=== PATIENT | female | born 1955 | race Caucasian/White ===

== ENCOUNTER 2017-10-27 16:18 | Emergency (ER) | payer BC ==
[~2017-10-27] VITALS: Ht 162.6 cm; Wt 88.5 kg
[~2017-10-27 16:18] MED LIST: ACETAZOLAMIDE250 M1 OR; AMARYL4 MG PO; ASPIR 8181 M1 PO; ATORVASTATIN CA40 MG PO; EFFEXOR XR75 MG PO; HYDROCODONE-AP1 EAC6 PO; HYDROCODONE-APA1 TA1 PO; IBUPROFEN 800800 M1 PO; LASIX 20 MG TAB20 MG PO; NEURONTIN600 MG PO; NORCO 5-325 TA1 EAC1 PO; OMEGA-31000 M1 PO; PERCOCET PO; POTASSIUM20 PO; REQUIP 1 MG TABL1 M1; TUMS PO; ULTRAM 50MG TAB50 MG PO; VICTOZA0.6 MG/0.1 SUBQ; VITAMIN D2000 UNIT PO
[2017-10-27 17:16] LABS: ABSOLUTE EOSINOPHILS 0.1 thou/uL (0.0-0.7); ABSOLUTE LYMPHOCYTES 1.2 thou/uL (0.8-5.3); ABSOLUTE MONOCYTES 0.6 thou/uL (0.0-1.2); ABSOLUTE NEUTROPHILS 7.3 thou/uL (1.6-8.1); BASOPHILS 0.4 %; EOSINOPHILS 0.9 %; HEMATOCRIT 39.3 % (37.0-47.0); HEMOGLOBIN 12.8 gm/dL (12.0-15.0); LYMPHOCYTES 12.9 %; MCH 29.8 pg (26.0-34.0); MCHC 32.5 g/dL (28.0-37.0); MCV 91.7 fL (80.0-100.0); MONOCYTES 6.8 %; MPV 9.5 fl. (7.2-11.1); NUCLEATED RBCS 0 /100WBC; PLATELET COUNT* 155 thou/uL (150-400); RBC 4.29 mil/uL (4.20-5.00); RDW-CV 14.7 % (10.5-14.5); WBC 9.2 thou/uL (4.0-11.0)
[2017-10-27 17:25] LABS: PROTIME 9.6 Seconds (9.20-11.50)
[2017-10-27 17:26] LABS: CALCIUM 8.4 mg/dL (8.5-10.1); CREATININE 1.7 mg/dL (0.6-1.3)
[2017-10-27 17:30] LABS: ALBUMIN 3.1 g/dL (3.4-5.0); TOTAL BILIRUBIN 0.3 mg/dL (<0.1-1.0); TOTAL PROTEIN 6.4 g/dL (6.4-8.2)
[2017-10-27 17:33] LABS: POTASSIUM 2.9 mmol/L (3.5-5.1)
[2017-10-27 17:44] LABS: TROPONIN-I LEVEL <0.06 ng/mL (<0.06)
[2017-10-27 18:22] LABS: URINE BILIRUBIN NEGATIVE (Negative); URINE BLOOD TRACE (Negative); URINE CLARITY CLEAR; URINE COLOR YELLOW; URINE GLUCOSE-RANDOM 2+ (Negative); URINE KETONES NEGATIVE (Negative); URINE LEUKOCYTES-REFLEX 1+ (Negative); URINE NITRITE-REFLEX NEGATIVE (Negative); URINE PROTEIN NEGATIVE (Negative); URINE UROBILINOGEN 0.2 E.U./dl (0.2-1.0)
[2017-10-27 18:29] LABS: CASTS None Seen /LPF (None Seen); CRYSTALS None Seen /LPF (None Seen); SQUAMOUS >10 Many /LPF (0-3); URINE WBC-REFLEX 6-15 Few /HPF (0-5)
[2017-10-27 18:30] LABS: BACTERIA-REFLEX >30 Many /HPF (None Seen); URINE RBC None Seen /HPF (0-2)
[2017-10-27] MEDS ORDERED: ZOFRAN ODT4 MG PO (18:33)
[2017-10-27] MEDS ORDERED: KEFLEX500 M1 PO (18:33)
[2017-10-27 18:51] VITALS: BP 146/77
--- NOTE | 2017-10-28 12:03 | EKG ---
[place] [address] ELECTROCARDIOGRAM REPORT Name: VALE DRUMMOND Room: [facility]#: [id number] Admission: 10/27/17 Attend Phys: Discharge: 10/27/17 Date of : 53 Report #: [id number] THIS REPORT FOR: //name// [facility] ED Test Date: 2017-10-27 Test Time: 17:54:32 Pat Name: VALE DRUMMOND Department: Room: Gender: F [employer] Attorney: Suzi CHATMAN : 1955 Requested By: Nish Costa Order Number: [id number] MD: Chon Gallardo Measurements Intervals Theodore Rate: 66 P: 23 WI: 204 QRS: -12 QRSD: 110 T: 204 QT: 571 QTc: 599 Interpretive Statements Sinus rhythm Consider anterior infarct Nonspecific T abnormalities, lateral leads Prolonged QT interval Compared to ECG 12/07/2016 12:24:30 Prolonged QT interval now present T-wave abnormality still present Electronically Signed On 10-28-2017 12:03:16 CDT by Chon Gallardo [email or web address] <ELECTRONICALLY SIGNED> By: Chon Gallardo MD, [facility] 10/28/17 1203 1754 1754 Chon Gallardo MD, [facility] /EPI
== END 2017-10-27 18:51 | disposition home or self-care (01) ==
LOC: M.ERS 16:18
PROVIDERS: Emergency Medicine Emergency Medical Services; Nurse Practitioner Family
DX: N39.0 Urinary tract infection, site not specified (principal); R25.1 Tremor, unspecified; E11.22 Type 2 diabetes mellitus with diabetic chronic kidney disease; N18.3 Chronic kidney disease, stage 3 (moderate); Z90.89 Acquired absence of other organs; Z86.14 Personal history of Methicillin resistant Staphylococcus aureus infection; Z88.2 Allergy status to sulfonamides; Z88.8 Allergy status to other drugs, medicaments and biological substances

== ENCOUNTER 2018-02-04 23:23 | Emergency (ER) | payer BC ==
[~2018-02-04] VITALS: Ht 162.6 cm; Wt 89.8 kg
[~2018-02-04 23:23] MED LIST changes: +KEFLEX500 M1 PO; +ZOFRAN ODT4 MG PO
[2018-02-04] MEDS ORDERED: AMARYL4 MG PO (23:36)
[2018-02-04] MEDS ORDERED: NORFLEX100 MG PO (23:36)
[2018-02-04 23:57] LABS: URINE BILIRUBIN NEGATIVE (Negative); URINE BLOOD NEGATIVE (Negative); URINE CLARITY CLEAR; URINE COLOR STRAW; URINE GLUCOSE-RANDOM NEGATIVE (Negative); URINE KETONES NEGATIVE (Negative); URINE LEUKOCYTES-REFLEX NEGATIVE (Negative); URINE NITRITE-REFLEX NEGATIVE (Negative); URINE PROTEIN NEGATIVE (Negative); URINE UROBILINOGEN 0.2 E.U./dl (0.2-1.0)
[2018-02-05 00:01] LABS: ABSOLUTE BASOPHILS 0.1 thou/uL (0.0-0.2); ABSOLUTE EOSINOPHILS 0.2 thou/uL (0.0-0.7); ABSOLUTE LYMPHOCYTES 3.4 thou/uL (0.8-5.3); ABSOLUTE MONOCYTES 0.8 thou/uL (0.0-1.2); ABSOLUTE NEUTROPHILS 8.1 thou/uL (1.6-8.1); BASOPHILS 0.8 %; EOSINOPHILS 1.3 %; HEMATOCRIT 37.1 % (37.0-47.0); HEMOGLOBIN 12.4 gm/dL (12.0-15.0); LYMPHOCYTES 26.9 %; MCH 30.6 pg (26.0-34.0); MCHC 33.3 g/dL (28.0-37.0); MCV 91.8 fL (80.0-100.0); MONOCYTES 6.6 %; MPV 8.8 fl. (7.2-11.1); NUCLEATED RBCS 0 /100WBC; PLATELET COUNT* 213 thou/uL (150-400); POLYS 64.4 %; RBC 4.04 mil/uL (4.20-5.00); RDW-CV 14.5 % (10.5-14.5); WBC 12.6 thou/uL (4.0-11.0)
[2018-02-05 00:17] LABS: POTASSIUM 4.1 mmol/L (3.5-5.1)
[2018-02-05 00:24] LABS: ALBUMIN 3.4 g/dL (3.4-5.0); MAGNESIUM 2.3 mg/dL (1.8-2.4); TOTAL BILIRUBIN 0.2 mg/dL (<0.1-1.0); TOTAL PROTEIN 6.7 g/dL (6.4-8.2)
[2018-02-05] MEDS ORDERED: NEURONTIN 300300 M1 PO (00:39)
[2018-02-05 01:35] VITALS: BP 119/72
== END 2018-02-05 01:36 | disposition home or self-care (01) ==
LOC: M.ERS 23:23
PROVIDERS: Nurse Practitioner Family
DX: M79.604 Pain in right leg (principal); M79.605 Pain in left leg; G25.81 Restless legs syndrome; E11.22 Type 2 diabetes mellitus with diabetic chronic kidney disease; N18.3 Chronic kidney disease, stage 3 (moderate); Z86.14 Personal history of Methicillin resistant Staphylococcus aureus infection; Z88.2 Allergy status to sulfonamides; Z88.8 Allergy status to other drugs, medicaments and biological substances

== ENCOUNTER 2018-08-23 07:04 | Emergency (ER) | payer BC ==
[~2018-08-23] VITALS: Ht 165.1 cm; Wt 104.3 kg
[~2018-08-23 07:04] MED LIST changes: +NEURONTIN 300300 M1 PO; +NORFLEX100 MG PO
[2018-08-23] MEDS ORDERED: METFORMIN HCL500 MG PO (07:19)
[2018-08-23] MEDS ORDERED: SKELAXIN 800 M800 M1 PO (07:19)
[2018-08-23] MEDS ORDERED: VICTOZA0.6 MG/0.1 SUBQ (07:19)
[2018-08-23] MEDS ORDERED: [UNRECOGNIZED DRUG - REMARK] (07:20)
[2018-08-23] MEDS ORDERED: ACETAMINOPHEN-1 EAC1 PO (08:53)
[2018-08-23] MEDS ORDERED: CYCLOBENZAPRINE5 MG PO (08:53)
[2018-08-23 09:30] VITALS: BP 141/67
== END 2018-08-23 09:31 | disposition home or self-care (01) ==
LOC: M.ERS 07:04
DX: M62.838 Other muscle spasm (principal); E11.22 Type 2 diabetes mellitus with diabetic chronic kidney disease; N18.3 Chronic kidney disease, stage 3 (moderate); M79.7 Fibromyalgia; F17.210 Nicotine dependence, cigarettes, uncomplicated; Z88.1 Allergy status to other antibiotic agents; Z88.2 Allergy status to sulfonamides; Z88.8 Allergy status to other drugs, medicaments and biological substances; Z98.890 Other specified postprocedural states; Z86.14 Personal history of Methicillin resistant Staphylococcus aureus infection

== ENCOUNTER 2018-09-27 19:21 | Emergency (ER) | payer BC ==
[~2018-09-27] VITALS: Ht 165.1 cm; Wt 99.8 kg
[~2018-09-27 19:21] MED LIST changes: +ACETAMINOPHEN-1 EAC1 PO; +CYCLOBENZAPRINE5 MG PO; +METFORMIN HCL500 MG PO; +SKELAXIN 800 M800 M1 PO; +[UNRECOGNIZED DRUG - REMARK]
[2018-09-27] MEDS ORDERED: TRESIBA100 UNIT/1 SUBQ (19:34)
[2018-09-27 20:31] VITALS: BP 151/78
== END 2018-09-27 20:32 | disposition home or self-care (01) ==
LOC: M.ERS 19:21
DX: S20.211A Contusion of right front wall of thorax, initial encounter (principal); F17.210 Nicotine dependence, cigarettes, uncomplicated; M79.7 Fibromyalgia; E11.22 Type 2 diabetes mellitus with diabetic chronic kidney disease; N18.3 Chronic kidney disease, stage 3 (moderate); Z88.8 Allergy status to other drugs, medicaments and biological substances; Z88.2 Allergy status to sulfonamides; Z90.89 Acquired absence of other organs; Z79.4 Long term (current) use of insulin; W01.0XXA Fall on same level from slipping, tripping and stumbling without subsequent striking against object, initial encounter; Y92.89 Other specified places as the place of occurrence of the external cause; Y93.89 Activity, other specified; Y99.8 Other external cause status

== ENCOUNTER 2018-12-01 19:27 | Emergency (ER) | payer BC ==
[~2018-12-01] VITALS: Ht 165.1 cm; Wt 108.9 kg
[~2018-12-01 19:27] MED LIST changes: +TRESIBA100 UNIT/1 SUBQ
[2018-12-01] MEDS ORDERED: EFFEXOR XR75 MG PO (19:48)
[2018-12-01] MEDS ORDERED: HUMALOG100 UNIT/1 SUBQ (19:49)
[2018-12-01] MEDS ORDERED: PROLIA60 MG/1 ML (19:50)
[2018-12-01] MEDS ORDERED: TRAMADOL 50 MG50 MG PO (19:51)
[2018-12-01] MEDS ORDERED: NORCO 7.5-3251 EACH PO (19:51)
[2018-12-01] MEDS ORDERED: ASPIR 8181 MG PO (19:52)
[2018-12-01] MEDS ORDERED: ALPHA LIPOIC A200 M1 PO (19:52)
[2018-12-01] MEDS ORDERED: SKELAXIN 800 M800 M1 PO (19:52)
[2018-12-01] MEDS ORDERED: TRESIBA100 UNIT/1 (19:53)
[2018-12-01 20:23] LABS: HEMATOCRIT 34.1 % (37.0-47.0); HEMOGLOBIN 11.4 gm/dL (12.0-15.0); MCH 29.3 pg (26.0-34.0); MCHC 33.5 g/dL (28.0-37.0); MCV 87.6 fL (80.0-100.0); MPV 10.3 fl. (7.2-11.1); RBC 3.9 mil/uL (4.20-5.00); RDW-CV 16.2 % (10.5-14.5); WBC 9.5 thou/uL (4.0-11.0)
[2018-12-01 20:28] LABS: INR 0.9; PROTIME 9.4 Seconds (9.20-11.50)
[2018-12-01] MEDS ORDERED: TORADOL 10 MG T10 MG PO (22:15)
[2018-12-01] MEDS ORDERED: HYDROCODON-ACE1 EAC8 PO (22:15)
[2018-12-01 22:34] VITALS: BP 131/78
== END 2018-12-01 22:35 | disposition home or self-care (01) ==
LOC: M.ERS 19:27
PROVIDERS: Personal Emergency Response Attendant
DX: S42.292A Other displaced fracture of upper end of left humerus, initial encounter for closed fracture (principal); E11.22 Type 2 diabetes mellitus with diabetic chronic kidney disease; N18.3 Chronic kidney disease, stage 3 (moderate); F17.210 Nicotine dependence, cigarettes, uncomplicated; M79.7 Fibromyalgia; Z88.2 Allergy status to sulfonamides; Z88.8 Allergy status to other drugs, medicaments and biological substances; Z90.89 Acquired absence of other organs; Z79.4 Long term (current) use of insulin; Z95.5 Presence of coronary angioplasty implant and graft; Z98.890 Other specified postprocedural states; X58.XXXA Exposure to other specified factors, initial encounter; Y92.89 Other specified places as the place of occurrence of the external cause; Y93.89 Activity, other specified; Y99.8 Other external cause status

== ENCOUNTER 2019-10-31 16:30 | Emergency (ER) | payer BC ==
[~2019-10-31] VITALS: Ht 165.1 cm; Wt 124.7 kg
[~2019-10-31 16:30] MED LIST changes: +ALPHA LIPOIC A200 M1 PO; +ASPIR 8181 MG PO; +HUMALOG100 UNIT/1 SUBQ; +HYDROCODON-ACE1 EAC8 PO; +NORCO 7.5-3251 EACH PO; +PROLIA60 MG/1 ML; +TORADOL 10 MG T10 MG PO; +TRAMADOL 50 MG50 MG PO; +TRESIBA100 UNIT/1
[2019-10-31 17:17] LABS: ABSOLUTE EOSINOPHILS 0.1 thou/uL (0.0-0.7); ABSOLUTE LYMPHOCYTES 1.8 thou/uL (0.8-5.3); ABSOLUTE MONOCYTES 0.4 thou/uL (0.0-1.2); ABSOLUTE NEUTROPHILS 3.4 thou/uL (1.6-8.1); BASOPHILS 0.2 %; EOSINOPHILS 2.4 %; HEMATOCRIT 32.9 % (37.0-47.0); HEMOGLOBIN 10.8 gm/dL (12.0-15.0); LYMPHOCYTES 31.5 %; MCH 27.7 pg (26.0-34.0); MCHC 32.9 g/dL (28.0-37.0); MCV 84.1 fL (80.0-100.0); MONOCYTES 7.4 %; MPV 9.2 fl. (7.2-11.1); NUCLEATED RBCS 0 /100WBC; PLATELET COUNT* 164 thou/uL (150-400); POLYS 58.5 %; RBC 3.91 mil/uL (4.20-5.00); WBC 5.8 thou/uL (4.0-11.0)
[2019-10-31 17:26] LABS: CREATININE 3.2 mg/dL (0.6-1.3); POTASSIUM 3.4 mmol/L (3.5-5.1)
[2019-10-31 17:27] LABS: APTT 27.7 Seconds (25.0-31.3); PROTIME 10.7 Seconds (9.20-11.50)
[2019-10-31 17:30] LABS: ALBUMIN 2.3 g/dL (3.4-5.0); TOTAL BILIRUBIN 0.3 mg/dL (<0.1-1.0); TOTAL PROTEIN 7.1 g/dL (6.4-8.2)
[2019-10-31] MEDS ORDERED: FLOMAX0.4 MG PO (17:36)
[2019-10-31] MEDS ORDERED: AMARYL2 M1 PO (17:37)
[2019-10-31] MEDS ORDERED: LYRICA100 MG PO (17:37)
[2019-10-31] MEDS ORDERED: LEVO-T50 MCG PO (17:37)
[2019-10-31] MEDS ORDERED: MAG-OXIDE400 MG PO (17:38)
[2019-10-31] MEDS ORDERED: NOVOLOG100 UNIT/M SUBQ ×2 (17:38→17:39)
[2019-10-31] MEDS ORDERED: KAPSPARGO SPRIN25 MG PO (17:38)
[2019-10-31] MEDS ORDERED: MIRALAX119 GM PO (17:40)
[2019-10-31] MEDS ORDERED: OXYCODONE HCL (17:40)
[2019-10-31] MEDS ORDERED: OYSTER SHELL C500 MG PO (17:40)
[2019-10-31] MEDS ORDERED: BUSPIRONE HCL10 MG PO (17:41)
[2019-10-31] MEDS ORDERED: SEROQUEL 25 MG25 M1 PO (17:41)
[2019-10-31] MEDS ORDERED: SEROQUEL 25 MG25 MG PO (17:41)
[2019-10-31] MEDS ORDERED: DULCOLAX STOOL100 M1 PO (17:42)
[2019-10-31] MEDS ORDERED: VITAMIN B-121000 MC2 PO (17:42)
[2019-10-31] MEDS ORDERED: CEFTRIAXONE2 G1 IVPB (17:42)
[2019-10-31] MEDS ORDERED: DRIZALMA SPRINK60 MG PO (17:42)
[2019-10-31] MEDS ORDERED: FEOSOL325 M1 PO (17:43)
[2019-10-31] MEDS ORDERED: XARELTO10 M1 PO (17:43)
[2019-10-31] MEDS ORDERED: REQUIP 1 MG TABL1 M1 PO (17:43)
[2019-10-31] MEDS ORDERED: TRESIBA100 UNIT/1 SUBQ (17:44)
[2019-10-31] MEDS ORDERED: CVS SENNA PLUS1 EACH PO (17:44)
[2019-10-31] MEDS ORDERED: ZYPREXA2.5 MG PO (17:44)
[2019-10-31 19:40] LABS: URINE BILIRUBIN NEGATIVE (Negative); URINE BLOOD 2+ (Negative); URINE CLARITY CLOUDY; URINE COLOR YELLOW; URINE GLUCOSE-RANDOM 1+ (Negative); URINE KETONES NEGATIVE (Negative); URINE LEUKOCYTES-REFLEX 3+ (Negative); URINE NITRITE-REFLEX NEGATIVE (Negative); URINE PROTEIN 2+ (Negative); URINE UROBILINOGEN 0.2 E.U./dl (0.2-1.0)
[2019-10-31 19:50] VITALS: BP 115/73
[2019-10-31 20:01] LABS: BACTERIA-REFLEX >30 Many /HPF (None Seen); CRYSTALS None Seen /LPF (None Seen); HYALINE CASTS 0-3 Few /LPF (None Seen); SQUAMOUS 0-3 Few /LPF (0-3); URINE RBC 3-10 Few /HPF (0-2); URINE WBC-REFLEX >25 Many /HPF (0-5); WBC CLUMPS Many (None Seen); YEAST-REFLEX Present (None Seen)
--- NOTE | 2019-11-01 10:15 | EKG ---
[place] [address] ELECTROCARDIOGRAM REPORT Name: VALE DRUMMOND Room: [facility]#: [id number] Admission: 10/31/19 Attend Phys: Discharge: 10/31/19 Date of : 53 Date of Service: 10/31/19 1647 Report #: [id number] THIS REPORT FOR: //name// [facility] ED Test Date: 2019-10-31 Test Time: 16:47:35 Pat Name: VALE DRUMMOND Department: Room: Gender: F [employer]: DS : 1955 Requested By: Darshan Still Order Number: [id number] MD: Chon Gallardo Measurements Intervals [place] Rate: 69 P: 12 OK: 211 QRS: 3 QRSD: 120 T: 29 QT: 412 QTc: 442 Interpretive Statements Sinus rhythm Nonspecific intraventricular conduction delay Borderline repolarization abnormality Compared to ECG 10/27/2017 17:54:32 Prolonged QT interval no longer present Electronically Signed On 11-01-2019 10:15:02 CDT by Chon Gallardo [email or web address] <ELECTRONICALLY SIGNED> By: Chon Gallardo MD, [facility] 11/01/19 1015 1647 1647 Chon Gallardo MD, [facility] /EPI
== END 2019-10-31 19:50 | disposition short-term general hospital (02) ==
LOC: M.ERS 16:30
PROVIDERS: Family Medicine
DX: S71.101A Unspecified open wound, right thigh, initial encounter (principal); N17.9 Acute kidney failure, unspecified; M25.551 Pain in right hip; R53.1 Weakness; E11.9 Type 2 diabetes mellitus without complications; M79.7 Fibromyalgia; F17.210 Nicotine dependence, cigarettes, uncomplicated; Z90.49 Acquired absence of other specified parts of digestive tract; Z98.51 Tubal ligation status; Z86.14 Personal history of Methicillin resistant Staphylococcus aureus infection; Z96.641 Presence of right artificial hip joint; Z88.1 Allergy status to other antibiotic agents; Z88.2 Allergy status to sulfonamides; Z88.8 Allergy status to other drugs, medicaments and biological substances; W18.11XA Fall from or off toilet without subsequent striking against object, initial encounter; Y93.89 Activity, other specified; Y92.89 Other specified places as the place of occurrence of the external cause; Y99.8 Other external cause status

== ENCOUNTER 2021-03-30 09:37 | Emergency (ER) | payer BC, OTHER ==
[~2021-03-30] VITALS: Ht 157.5 cm; Wt 99.8 kg
[~2021-03-30 09:37] MED LIST changes: +AMARYL2 M1 PO; +BUSPIRONE HCL10 MG PO; +CEFTRIAXONE2 G1 IVPB; +CVS SENNA PLUS1 EACH PO; +DRIZALMA SPRINK60 MG PO; +DULCOLAX STOOL100 M1 PO; +FEOSOL325 M1 PO; +FLOMAX0.4 MG PO; +KAPSPARGO SPRIN25 MG PO; +LEVO-T50 MCG PO; +LYRICA100 MG PO; +MAG-OXIDE400 MG PO; +MIRALAX119 GM PO; +NOVOLOG100 UNIT/M SUBQ; +OXYCODONE HCL; +OYSTER SHELL C500 MG PO; +REQUIP 1 MG TABL1 M1 PO; +SEROQUEL 25 MG25 M1 PO; +SEROQUEL 25 MG25 MG PO; +VITAMIN B-121000 MC2 PO; +XARELTO10 M1 PO; +ZYPREXA2.5 MG PO
[2021-03-30] MEDS ORDERED: PERCOCET PO (10:28)
[2021-03-30 11:37] VITALS: BP 166/67
== END 2021-03-30 11:37 | disposition home or self-care (01) ==
LOC: M.ERS 09:37
DX: S93.431A Sprain of tibiofibular ligament of right ankle, initial encounter (principal); F17.210 Nicotine dependence, cigarettes, uncomplicated; E11.9 Type 2 diabetes mellitus without complications; Z79.4 Long term (current) use of insulin; Z90.89 Acquired absence of other organs; Z98.51 Tubal ligation status; Z79.899 Other long term (current) drug therapy; Z88.2 Allergy status to sulfonamides; X50.1XXA Overexertion from prolonged static or awkward postures, initial encounter; Y93.89 Activity, other specified; Y92.89 Other specified places as the place of occurrence of the external cause; Y99.8 Other external cause status

== ENCOUNTER 2021-06-22 16:41 | Emergency (ER) | payer BC, OTHER ==
[~2021-06-22] VITALS: Ht 165.1 cm; Wt 90.7 kg
[2021-06-22 18:57] VITALS: BP 98/71
== END 2021-06-22 18:58 | disposition home or self-care (01) ==
LOC: M.ERS 16:41
DX: M25.551 Pain in right hip (principal); M54.50 Low back pain, unspecified; E11.9 Type 2 diabetes mellitus without complications; Z96.641 Presence of right artificial hip joint; Z79.899 Other long term (current) drug therapy; Z79.4 Long term (current) use of insulin; Z88.8 Allergy status to other drugs, medicaments and biological substances; Z88.2 Allergy status to sulfonamides; Z88.6 Allergy status to analgesic agent